=== PATIENT | female | born 1960 | race Caucasian/White ===

== ENCOUNTER → 2016-04-12 | Outpatient (CLI) | payer OTHER ==
[~2016-04-12] MED LIST: ADVAIR 250/501 DISK IH; ALBUTEROL SULF8.5 GM IH; ALBUTEROL2.5 MG/3 M IH; ALKA-SELTZER P1 EAC2 PO; AMOXICILLIN875 MG PO; ASPIRIN EC325 MG PO; ATORVASTATIN CA40 MG PO; CEFUROXIME500 MG PO; CHANTIX0.5 MG PO; CHANTIX1 MG PO; CITALOPRAM HBR20 MG PO; CITALOPRAM HBR40 MG PO; EXCEDRIN EXTRA1 EACH PO; LEVAQUIN500 MG PO; LEVAQUIN750 MG PO; LOPRESSOR25 MG PO; NAPROSYN375 MG PO; NORCO 5/3251 TABLET PO; PREDNISONE10 MG PO; PREDNISONE20 MG PO; PREDNISONE5 M1 PO; PROAIR HFA8.5 GM IH; SPIRIVA1 INHALATI IH; TYLENOL WITH C1 EACH PO; VENTOLIN HFA18 GM IH
== END | disposition home or self-care (01) ==
LOC: RES 08:00
DX: Z02.71 Encounter for disability determination (principal)
CPT/HCPCS: 94060; 94729

== ENCOUNTER 2016-04-23 12:20 | Emergency (ER) | payer OTHER ==
[~2016-04-23] VITALS: Ht 152.4 cm; Wt 40.3 kg
[~2016-04-23 12:20] MED LIST changes: -LEVAQUIN500 MG PO; -TYLENOL WITH C1 EACH PO
[2016-04-23 13:44] LABS: HEMATOCRIT 41.5 % (36.0-46.0); MCH 30.2 PG (29.0-34.0); MCHC 33.5 G/DL (30.0-36.0); MEAN PLAT.VOLUME 9.1 uM^3 (9.5-12.4); PLATELET COUNT 403 K/uL (156-360); RBC DIS.WIDTH-CV 14.5 % (11.8-14.6); RBC DIS.WIDTH-SD 46.9 % (39-53); RED BLOOD COUNT 4.61 M/uL (3.80-5.20); WHITE BLOOD COUNT 21.2 K/uL (4.1-10.2)
[2016-04-23 13:58] LABS: CHLORIDE 103 mEq/L (99-109); POTASSIUM 3.8 mEq/L (3.7-5.4)
[2016-04-23 13:59] LABS: SODIUM 139 mEq/L (136-147)
[2016-04-23 14:00] LABS: GLUCOSE 92 mg/dL (70-99)
[2016-04-23 14:02] LABS: ANION GAP 9 MEQ/L (2-14)
[2016-04-23 14:04] LABS: GFR ESTIMATE (CALCULATED) > 59 mL/min/
[2016-04-23 14:05] LABS: UREA NITROGEN (BUN) 15 mg/dL (9-23)
[2016-04-23 14:26] LABS: D-DIMER ELISA 0.33 mg/L FEU (< 0.57)
[2016-04-23 14:28] LABS: EOSINOPHIL (%) 0.6 % (0-5); EOSINOPHIL COUNT 0.1 K/uL (0-0.3); IMMATURE GRANULOCYTE (%) 0.2 % (0.0-0.7); IMMATURE GRANULOCYTE COUNT 0.5 K/uL; LYMPHOCYTE COUNT 3.3 K/uL (1.0-2.8); MONOCYTE (%) 8.3 % (3-12); MONOCYTE COUNT 1.8 K/uL (0-0.8); NEUTROPHIL (%) 75.2 % (45-76)
[2016-04-23 14:30] LABS: TROP-I INTERPRETATION NEGATIVE; TROPONIN-I < 0.01 ng/mL (0.0-0.30)
[2016-04-23 15:09] LABS: ABS NEUTROPHIL COUNT 15.92; EOSINOPHIL ABS CT 0.21; HEMATOLOGY COMMENT 1 SMEAR COMPATIBLE; PLAT.SUFFICIENCY ADEQUATE; USER ID NPD
[2016-04-23] MEDS ORDERED: LEVAQUIN500 MG PO (18:09)
[2016-04-23] MEDS ORDERED: TYLENOL WITH C1 EACH PO (18:09)
[2016-04-23 18:30] VITALS: BP 119/74
== END 2016-04-23 18:38 | disposition home or self-care (01) ==
LOC: EME 12:20
DX: J20.9 Acute bronchitis, unspecified (principal); J06.9 Acute upper respiratory infection, unspecified; I25.2 Old myocardial infarction; Z85.41 Personal history of malignant neoplasm of cervix uteri; Z87.891 Personal history of nicotine dependence
CPT/HCPCS: 71020; 71275; 80048; 83605; 83880; 84484; 85025; 85027; 85379; 87040; 93005; 99281; 99285; J2270; J2405; J7030

== ENCOUNTER 2016-05-26 22:33 | Inpatient (IN) | payer OTHER ==
[~2016-05-26] VITALS: Ht 157.5 cm; Wt 39.6 kg
[~2016-05-26 22:33] MED LIST changes: +LEVAQUIN500 MG PO; +TYLENOL WITH C1 EACH PO
[2016-05-26 23:19] LABS: HEMATOCRIT 42.9 % (36.0-46.0); MCHC 33.1 G/DL (30.0-36.0); MCV 90.7 FL (83-99); MEAN PLAT.VOLUME 9.2 uM^3 (9.5-12.4); PLATELET COUNT 283 K/uL (156-360); RBC DIS.WIDTH-CV 14.6 % (11.8-14.6); RBC DIS.WIDTH-SD 47.6 % (39-53); RED BLOOD COUNT 4.73 M/uL (3.80-5.20); WHITE BLOOD COUNT 8.8 K/uL (4.1-10.2)
[2016-05-26 23:21] LABS: CARBON DIOXIDE (BICARBONATE) 32.9 MEQ/L (20-31)
[2016-05-26 23:28] LABS: CHLORIDE 103 mEq/L (99-109); POTASSIUM 3.8 mEq/L (3.7-5.4); SODIUM 142 mEq/L (136-147)
[2016-05-26 23:30] LABS: PTT 27.2 (25-32)
[2016-05-26 23:30] LABS: GLUCOSE 109 mg/dL (70-99)
[2016-05-26 23:31] LABS: ANION GAP 11 MEQ/L (2-14)
[2016-05-26 23:34] LABS: GFR ESTIMATE (CALCULATED) > 59 mL/min/
[2016-05-26 23:35] LABS: UREA NITROGEN (BUN) 20 mg/dL (9-23)
[2016-05-26 23:39] LABS: TROP-I INTERPRETATION NEGATIVE; TROPONIN-I < 0.01 ng/mL (0.0-0.30)
[2016-05-26 23:54] LABS: BASE EXCESS -2.1 mEq/L (-3 to +3); CARBOXY HGB 2.6 % (0-5); METHEMOGLOBIN 1.1 % (0-1.5); PCO2 58 mm Hg (35-45); PO2 227 mm Hg (80-100)
[2016-05-26 23:55] LABS: COMMENTS - BLOOD GASES C+A+; DEVICE NIV; FI02 50 %; MODE SPONT; PEEP 10 CM/H20; PRES. SUPPORT 12 CM/H2O; SITE RR; TOTAL RESP RATE 21 resp/min; pH 7.26 (7.35-7.45)
[2016-05-27] VITALS (13 sets, daily range): BP systolic 92–158; BP diastolic 62–101
[2016-05-27 02:13] LABS: BASE EXCESS -1.1 mEq/L (-3 to +3); BICARBONATE 25.7 mEq/L (22-26); CARBOXY HGB 2.5 % (0-5); METHEMOGLOBIN 1.7 % (0-1.5); pH 7.31 (7.35-7.45)
[2016-05-27 02:14] LABS: COMMENTS - BLOOD GASES C+A+; DEVICE NIV; FI02 30 %; MODE SPONT; PCO2 51 mm Hg (35-45); PEEP 5 CM/H20; PO2 104 mm Hg (80-100); PRES. SUPPORT 10 CM/H2O; SITE RR; TOTAL RESP RATE 10 resp/min
[2016-05-27 02:30] LABS: METH RESISTANT S AUREUS PCR NEGATIVE (NEGATIVE)
[2016-05-27 02:43] LABS: PROBE CHECK PASS; SPECIMEN PROCESSING CONTROL PASS
[2016-05-27] MEDS ORDERED: METOPROLOL TART25 MG PO (13:21)
[2016-05-27] MEDS ORDERED: PREDNISONE10 MG PO (13:22)
[2016-05-27] MEDS ORDERED: ATORVASTATIN CA40 MG PO (13:22)
[2016-05-27] MEDS ORDERED: CITALOPRAM HBR40 MG PO (13:23)
[2016-05-27] MEDS ORDERED: PROAIR HFA8.5 GM IH (13:25)
[2016-05-27] MEDS ORDERED: PROVENTIL,2.5 MG/3 M IH (13:26)
[2016-05-27] MEDS ORDERED: ADVAIR 250/501 DISK IH (13:26)
[2016-05-27 13:37] LABS: EOSINOPHIL (%) 0 % (0-5); HEMATOCRIT 37.6 % (36.0-46.0); IMMATURE GRANULOCYTE (%) 0.3 % (0.0-0.7); LYMPHOCYTE COUNT 0.9 K/uL (1.0-2.8); MCH 28.9 PG (29.0-34.0); MCHC 31.6 G/DL (30.0-36.0); MCV 91.3 FL (83-99); MEAN PLAT.VOLUME 9.3 uM^3 (9.5-12.4); MONOCYTE COUNT 0.7 K/uL (0-0.8); NEUTROPHIL (%) 78.6 % (45-76); NEUTROPHIL COUNT 5.8 K/uL (1.8-6.4); PLATELET COUNT 259 K/uL (156-360); RBC DIS.WIDTH-CV 14.6 % (11.8-14.6); RBC DIS.WIDTH-SD 49.2 % (39-53); RED BLOOD COUNT 4.12 M/uL (3.80-5.20); WHITE BLOOD COUNT 7.3 K/uL (4.1-10.2)
[2016-05-27 14:01] LABS: ANION GAP 8 MEQ/L (2-14); CHLORIDE 102 MEQ/L (99-109); MAGNESIUM 1.8 mg/dl (1.3-2.7); POTASSIUM 4.1 MEQ/L (3.7-5.4); SAMPLE HEMOLYSIS CHECK 0; SAMPLE ICTERIC CHECK 0; SAMPLE LIPEMIA CHECK 0; SODIUM 141 MEQ/L (136-147)
[2016-05-27 14:06] LABS: GFR ESTIMATE (CALCULATED) > 59 mL/min/; GLUCOSE 141 mg/dL (70-99); UREA NITROGEN (BUN) 12 mg/dL (9-23)
[2016-05-28] VITALS: BP 117/71
[2016-05-28 04:00] VITALS: BP 131/86
[2016-05-28 06:46] LABS: EOSINOPHIL (%) 0 % (0-5); HEMATOCRIT 36.5 % (36.0-46.0); IMMATURE GRANULOCYTE (%) 0.2 % (0.0-0.7); LYMPHOCYTE COUNT 1.1 K/uL (1.0-2.8); MCV 91.3 FL (83-99); MEAN PLAT.VOLUME 9.7 uM^3 (9.5-12.4); MONOCYTE (%) 6.3 % (3-12); MONOCYTE COUNT 0.7 K/uL (0-0.8); NEUTROPHIL (%) 83.5 % (45-76); NEUTROPHIL COUNT 9.1 K/uL (1.8-6.4); PLATELET COUNT 267 K/uL (156-360); RBC DIS.WIDTH-CV 14.5 % (11.8-14.6); RBC DIS.WIDTH-SD 48.4 % (39-53)
[2016-05-28 06:52] LABS: ANION GAP 6 MEQ/L (2-14); CHLORIDE 102 MEQ/L (99-109); GFR ESTIMATE (CALCULATED) > 59 mL/min/; GLUCOSE 128 mg/dL (70-99); POTASSIUM 4.4 MEQ/L (3.7-5.4); SAMPLE HEMOLYSIS CHECK 0; SAMPLE ICTERIC CHECK 0; SAMPLE LIPEMIA CHECK 0; SODIUM 139 MEQ/L (136-147); UREA NITROGEN (BUN) 11 mg/dL (9-23)
[2016-05-28 06:55] LABS: MAGNESIUM 2.4 mg/dl (1.3-2.7)
[2016-05-28 06:56] LABS: WHITE BLOOD COUNT 10.9 K/uL (4.1-10.2)
[2016-05-28 08:00] VITALS: BP 135/72
[2016-05-28 10:33] LABS: INFLUENZA A VIRAL ANTIGEN NEGATIVE; INFLUENZA B VIRAL ANTIGEN NEGATIVE
[2016-05-28] MEDS ORDERED: SPIRIVA1 INHALATI IH (11:11)
[2016-05-28 12:00] VITALS: BP 131/72
[2016-05-28 16:00] VITALS: BP 115/80
[2016-05-28 20:00] VITALS: BP 123/89
[2016-05-29] VITALS: BP 122/73
[2016-05-29 04:00] VITALS: BP 112/69
[2016-05-29 06:07] LABS: EOSINOPHIL (%) 0 % (0-5); HEMATOCRIT 38.6 % (36.0-46.0); IMMATURE GRANULOCYTE (%) 0.2 % (0.0-0.7); LYMPHOCYTE COUNT 1.1 K/uL (1.0-2.8); MCH 29.4 PG (29.0-34.0); MCHC 32.4 G/DL (30.0-36.0); MCV 90.8 FL (83-99); MEAN PLAT.VOLUME 9.6 uM^3 (9.5-12.4); MONOCYTE (%) 4.4 % (3-12); MONOCYTE COUNT 0.6 K/uL (0-0.8); NEUTROPHIL (%) 87.6 % (45-76); NEUTROPHIL COUNT 12.4 K/uL (1.8-6.4); PLATELET COUNT 283 K/uL (156-360); RBC DIS.WIDTH-CV 14.5 % (11.8-14.6); RBC DIS.WIDTH-SD 47.8 % (39-53); RED BLOOD COUNT 4.25 M/uL (3.80-5.20)
[2016-05-29 06:13] LABS: WHITE BLOOD COUNT 14.2 K/uL (4.1-10.2)
[2016-05-29 06:24] LABS: ANION GAP 5 MEQ/L (2-14); CHLORIDE 99 MEQ/L (99-109); GFR ESTIMATE (CALCULATED) > 59 mL/min/; GLUCOSE 124 mg/dL (70-99); MAGNESIUM 2.4 mg/dl (1.3-2.7); POTASSIUM 4.9 MEQ/L (3.7-5.4); SAMPLE HEMOLYSIS CHECK 0; SAMPLE ICTERIC CHECK 0; SAMPLE LIPEMIA CHECK 0; SODIUM 138 MEQ/L (136-147); UREA NITROGEN (BUN) 20 mg/dL (9-23)
[2016-05-29 08:00] VITALS: BP 134/85
[2016-05-29 12:00] VITALS: BP 121/88
[2016-05-29 16:00] VITALS: BP 111/74
[2016-05-29 20:00] VITALS: BP 110/66
[2016-05-30] VITALS: BP 122/79
[2016-05-30 04:00] VITALS: BP 123/79
[2016-05-30 05:36] LABS: EOSINOPHIL (%) 0 % (0-5); HEMATOCRIT 41.6 % (36.0-46.0); IMMATURE GRANULOCYTE (%) 0.4 % (0.0-0.7); IMMATURE GRANULOCYTE COUNT 0.1 K/uL; LYMPHOCYTE COUNT 1.5 K/uL (1.0-2.8); MCH 31.1 PG (29.0-34.0); MCHC 33.4 G/DL (30.0-36.0); MCV 93.1 FL (83-99); MEAN PLAT.VOLUME 9.9 uM^3 (9.5-12.4); MONOCYTE (%) 4.3 % (3-12); MONOCYTE COUNT 0.7 K/uL (0-0.8); NEUTROPHIL COUNT 13.8 K/uL (1.8-6.4); PLATELET COUNT 315 K/uL (156-360); RBC DIS.WIDTH-CV 14.6 % (11.8-14.6); RBC DIS.WIDTH-SD 49.9 % (39-53); RED BLOOD COUNT 4.47 M/uL (3.80-5.20)
[2016-05-30 06:24] LABS: ANION GAP 8 MEQ/L (2-14); CHLORIDE 97 MEQ/L (99-109); GFR ESTIMATE (CALCULATED) > 59 mL/min/; GLUCOSE 116 mg/dL (70-99); MAGNESIUM 2.2 mg/dl (1.3-2.7); POTASSIUM 4.5 MEQ/L (3.7-5.4); SAMPLE HEMOLYSIS CHECK 0; SAMPLE ICTERIC CHECK 0; SAMPLE LIPEMIA CHECK 0; SODIUM 140 MEQ/L (136-147); UREA NITROGEN (BUN) 22 mg/dL (9-23)
[2016-05-30 09:00] VITALS: BP 90/74
[2016-05-30 12:30] VITALS: BP 134/95
[2016-05-30 16:00] VITALS: BP 120/79
[2016-05-30 20:00] VITALS: BP 72/36
[2016-05-31] VITALS (7 sets, daily range): BP systolic 112–119; BP diastolic 68–88
[2016-05-31 05:36] LABS: EOSINOPHIL (%) 0 % (0-5); HEMATOCRIT 38.7 % (36.0-46.0); IMMATURE GRANULOCYTE (%) 0.3 % (0.0-0.7); IMMATURE GRANULOCYTE COUNT 0.1 K/uL; MCH 30.4 PG (29.0-34.0); MCHC 33.3 G/DL (30.0-36.0); MCV 91.1 FL (83-99); MEAN PLAT.VOLUME 9.8 uM^3 (9.5-12.4); MONOCYTE (%) 4.5 % (3-12); MONOCYTE COUNT 0.7 K/uL (0-0.8); NEUTROPHIL (%) 88.7 % (45-76); NEUTROPHIL COUNT 12.9 K/uL (1.8-6.4); PLATELET COUNT 313 K/uL (156-360); RBC DIS.WIDTH-CV 14.3 % (11.8-14.6); RBC DIS.WIDTH-SD 47.3 % (39-53); RED BLOOD COUNT 4.25 M/uL (3.80-5.20); WHITE BLOOD COUNT 14.5 K/uL (4.1-10.2)
[2016-05-31 06:01] LABS: ALKALINE PHOSPHATASE 60 IU/L (3-129); ANION GAP 6 MEQ/L (2-14); CHLORIDE 99 MEQ/L (99-109); GFR ESTIMATE (CALCULATED) > 59 mL/min/; GLUCOSE 111 mg/dL (70-99); MAGNESIUM 2.1 mg/dl (1.3-2.7); POTASSIUM 4.4 MEQ/L (3.7-5.4); SAMPLE HEMOLYSIS CHECK 0; SAMPLE ICTERIC CHECK 0; SAMPLE LIPEMIA CHECK 0; SODIUM 136 MEQ/L (136-147); TOTAL BILIRUBIN 0.4 MG/DL (0.0-1.0); UREA NITROGEN (BUN) 24 mg/dL (9-23)
[2016-06-01] VITALS (7 sets, daily range): BP systolic 109–131; BP diastolic 59–84
[2016-06-01 06:31] LABS: EOSINOPHIL (%) 0 % (0-5); HEMATOCRIT 38.5 % (36.0-46.0); IMMATURE GRANULOCYTE (%) 0.5 % (0.0-0.7); IMMATURE GRANULOCYTE COUNT 0.1 K/uL; LYMPHOCYTE COUNT 1.2 K/uL (1.0-2.8); MCH 30.6 PG (29.0-34.0); MONOCYTE (%) 5.5 % (3-12); MONOCYTE COUNT 0.8 K/uL (0-0.8); NEUTROPHIL (%) 85.8 % (45-76); NEUTROPHIL COUNT 12.7 K/uL (1.8-6.4); PLATELET COUNT 336 K/uL (156-360); RBC DIS.WIDTH-CV 14.1 % (11.8-14.6); RBC DIS.WIDTH-SD 46.2 % (39-53); RED BLOOD COUNT 4.28 M/uL (3.80-5.20); WHITE BLOOD COUNT 14.8 K/uL (4.1-10.2)
[2016-06-01 06:52] LABS: ANION GAP 6 MEQ/L (2-14); CHLORIDE 99 MEQ/L (99-109); GFR ESTIMATE (CALCULATED) > 59 mL/min/; GLUCOSE 113 mg/dL (70-99); POTASSIUM 4.8 MEQ/L (3.7-5.4); SAMPLE HEMOLYSIS CHECK 0; SAMPLE ICTERIC CHECK 0; SAMPLE LIPEMIA CHECK 0; SODIUM 136 MEQ/L (136-147); UREA NITROGEN (BUN) 24 mg/dL (9-23)
[2016-06-02 03:56] VITALS: BP 114/59
[2016-06-02 06:39] LABS: HEMATOCRIT 40.1 % (36.0-46.0); MCH 28.9 PG (29.0-34.0); MCHC 32.2 G/DL (30.0-36.0); MCV 89.7 FL (83-99); MEAN PLAT.VOLUME 9.6 uM^3 (9.5-12.4); PLATELET COUNT 359 K/uL (156-360); RBC DIS.WIDTH-CV 14.3 % (11.8-14.6); RBC DIS.WIDTH-SD 46.9 % (39-53); RED BLOOD COUNT 4.47 M/uL (3.80-5.20); WHITE BLOOD COUNT 14.5 K/uL (4.1-10.2)
[2016-06-02 06:53] LABS: EOSINOPHIL (%) 0.3 % (0-5); IMMATURE GRANULOCYTE (%) 1.3 % (0.0-0.7); IMMATURE GRANULOCYTE COUNT 0.2 K/uL; LYMPHOCYTE COUNT 2.7 K/uL (1.0-2.8); MONOCYTE (%) 12.2 % (3-12); MONOCYTE COUNT 1.8 K/uL (0-0.8); NEUTROPHIL (%) 67.8 % (45-76); NEUTROPHIL COUNT 9.8 K/uL (1.8-6.4)
[2016-06-02] MEDS ORDERED: PREDNISONE20 MG PO (06:53)
[2016-06-02] MEDS ORDERED: CARDIZEM60 MG PO (06:53)
[2016-06-02 07:02] LABS: ANION GAP 5 MEQ/L (2-14); CHLORIDE 98 MEQ/L (99-109); GFR ESTIMATE (CALCULATED) > 59 mL/min/; GLUCOSE 86 mg/dL (70-99); MAGNESIUM 1.9 mg/dl (1.3-2.7); POTASSIUM 4.3 MEQ/L (3.7-5.4); SAMPLE HEMOLYSIS CHECK 0; SAMPLE ICTERIC CHECK 0; SAMPLE LIPEMIA CHECK 0; SODIUM 135 MEQ/L (136-147); UREA NITROGEN (BUN) 22 mg/dL (9-23)
[2016-06-02 08:32] VITALS: BP 125/65
[2016-06-02 08:40] VITALS: BP 116/67
[2016-06-02 11:47] VITALS: BP 129/66
== END 2016-06-02 13:16 | disposition home or self-care (01) | DRG 190 ==
LOC: EME → EDBD 22:33 → EME 22:33 → EDOF 05-27 00:06 → 4WEST 05-27 00:06 → 3EAST 05-31 22:40
PROVIDERS: Emergency Medicine; Family Medicine; Internal Medicine Nephrology; Physician Assistant Medical; Surgery
PROC: 5A09357 Assistance with Respiratory Ventilation, Less than 24 Consecutive Hours, Continuous Positive Airway Pressure (ICD-10-PCS; principal; 2016-05-27)
DX: J44.0 Chronic obstructive pulmonary disease with (acute) lower respiratory infection (principal); J15.9 Unspecified bacterial pneumonia; J96.22 Acute and chronic respiratory failure with hypercapnia; E87.2 Acidosis; J44.1 Chronic obstructive pulmonary disease with (acute) exacerbation; I10 Essential (primary) hypertension; F41.9 Anxiety disorder, unspecified; F32.9 Major depressive disorder, single episode, unspecified; Z99.81 Dependence on supplemental oxygen; Z87.891 Personal history of nicotine dependence; I25.2 Old myocardial infarction; J20.9 Acute bronchitis, unspecified
CPT/HCPCS: 36600; 71010; 71020; 80048; 80048 91; 80053; 82803; 83605; 83735; 83880; 84100; 84484; 85025; 85025 91; 85027; 85610; 85730; 87040; 87449; 87502; 87641; 94002; 94640; 94640 76; 94644; 94799; 99202; 99281; 99285; J0330; J0456; J0696; J1644; J1956; J2270; J2920; J2930; J3475; J7030; J7050; J7512; J7644

== ENCOUNTER 2016-06-05 19:48 | Inpatient (IN) | payer OTHER ==
[~2016-06-05] VITALS: Ht 154.9 cm; Wt 41.6 kg
[~2016-06-05 19:48] MED LIST changes: +CARDIZEM60 MG PO; +METOPROLOL TART25 MG PO; +PROVENTIL,2.5 MG/3 M IH
[2016-06-05 20:19] LABS: BASE EXCESS 3.5 mEq/L (-3 to +3); BICARBONATE 30.4 mEq/L (22-26); CARBOXY HGB 1.7 % (0-5); METHEMOGLOBIN 1.1 % (0-1.5); PCO2 55 mm Hg (35-45); PO2 111 mm Hg (80-100); pH 7.35 (7.35-7.45)
[2016-06-05 20:20] LABS: COMMENTS - BLOOD GASES C+A+; DEVICE NIV; FI02 30 %; MODE SPONT; PEEP 5 CM/H20; PRES. SUPPORT 10 CM/H2O; SITE RB; TOTAL RESP RATE 16 resp/min
[2016-06-05 20:39] LABS: HEMATOCRIT 37.6 % (36.0-46.0); MCH 30.7 PG (29.0-34.0); MCHC 33.8 G/DL (30.0-36.0); MCV 90.8 FL (83-99); MEAN PLAT.VOLUME 9.4 uM^3 (9.5-12.4); PLATELET COUNT 389 K/uL (156-360); RBC DIS.WIDTH-CV 14.6 % (11.8-14.6); RBC DIS.WIDTH-SD 47.5 % (39-53); RED BLOOD COUNT 4.14 M/uL (3.80-5.20); WHITE BLOOD COUNT 15.4 K/uL (4.1-10.2)
[2016-06-05 20:43] LABS: CARBON DIOXIDE (BICARBONATE) 31.8 MEQ/L (20-31)
[2016-06-05 20:45] LABS: CHLORIDE 103 mEq/L (99-109); POTASSIUM 4.3 mEq/L (3.7-5.4); SODIUM 139 mEq/L (136-147)
[2016-06-05 20:47] LABS: GLUCOSE 225 mg/dL (70-99)
[2016-06-05 20:48] LABS: ANION GAP 9 MEQ/L (2-14)
[2016-06-05 20:51] LABS: GFR ESTIMATE (CALCULATED) > 59 mL/min/
[2016-06-05 20:52] LABS: UREA NITROGEN (BUN) 33 mg/dL (9-23)
[2016-06-05 20:58] LABS: TROP-I INTERPRETATION NEGATIVE; TROPONIN-I < 0.01 ng/mL (0.0-0.30)
[2016-06-05] MEDS ORDERED: PREDNISONE10 MG PO ×2 (21:43→21:44)
[2016-06-05 22:11] LABS: BASE EXCESS 2.6 mEq/L (-3 to +3); BICARBONATE 28.4 mEq/L (22-26); CARBOXY HGB 1.5 % (0-5); pH 7.38 (7.35-7.45)
[2016-06-05 22:12] LABS: COMMENTS - BLOOD GASES C+A+; DEVICE HHFNC; FI02 30 %; O2 FLOW 50 L/MIN; PCO2 48 mm Hg (35-45); PO2 141 mm Hg (80-100); SITE RB; TOTAL RESP RATE 24 resp/min
[2016-06-05 23:46] VITALS: BP 125/75
[2016-06-06 03:10] VITALS: BP 148/87
[2016-06-06 07:42] VITALS: BP 123/85
[2016-06-06 07:52] LABS: ANION GAP 7 MEQ/L (2-14); CHLORIDE 104 MEQ/L (99-109); POTASSIUM 4.4 MEQ/L (3.7-5.4); SAMPLE HEMOLYSIS CHECK 0; SAMPLE ICTERIC CHECK 0; SAMPLE LIPEMIA CHECK 0; SODIUM 137 MEQ/L (136-147)
[2016-06-06 07:55] LABS: GFR ESTIMATE (CALCULATED) > 59 mL/min/; UREA NITROGEN (BUN) 19 mg/dL (9-23)
[2016-06-06 07:56] LABS: GLUCOSE 115 mg/dL (70-99)
[2016-06-06 11:40] VITALS: BP 142/88
[2016-06-06 16:15] VITALS: BP 130/69
[2016-06-06 19:51] VITALS: BP 135/72
[2016-06-06 23:18] VITALS: BP 135/78
[2016-06-07 03:43] VITALS: BP 120/67
[2016-06-07 08:26] VITALS: BP 121/70
[2016-06-07 11:16] VITALS: BP 135/80
[2016-06-07 14:54] VITALS: BP 145/73
[2016-06-07 19:32] VITALS: BP 159/86
[2016-06-07 23:03] VITALS: BP 113/62
[2016-06-08] VITALS (7 sets, daily range): BP systolic 125–175; BP diastolic 66–78
[2016-06-09 03:48] VITALS: BP 140/83
[2016-06-09 06:55] VITALS: BP 134/91
[2016-06-09 11:25] VITALS: BP 134/91
[2016-06-09 15:10] VITALS: BP 132/76
[2016-06-09 19:46] VITALS: BP 120/65
[2016-06-09 23:52] VITALS: BP 128/77
[2016-06-10 03:46] VITALS: BP 122/74
[2016-06-10 06:50] VITALS: BP 130/80
[2016-06-10] MEDS ORDERED: ALPRAZOLAM0.25 M2 PO (08:20)
[2016-06-10] MEDS ORDERED: DUONEB 2.5-0.5 M3 ML AEROSOL (08:20)
[2016-06-10] MEDS ORDERED: BUSPAR15 MG PO (08:20)
[2016-06-10] MEDS ORDERED: LEVOFLOXACIN750 MG PO (08:20)
[2016-06-10 11:35] VITALS: BP 134/81
== END 2016-06-10 13:14 | disposition home health service (06) | DRG 189 ==
LOC: EME → EDBD 19:48 → EME 19:48 → 4EAST 22:32 → EDOF 22:32 → 4EAST 23:43 → 2EAST 06-08 11:16
PROVIDERS: Emergency Medicine; Family Medicine
PROC: 5A09358 Assistance with Respiratory Ventilation, Less than 24 Consecutive Hours, Intermittent Positive Airway Pressure (ICD-10-PCS; principal; 2016-06-05)
DX: J96.21 Acute and chronic respiratory failure with hypoxia (principal); J44.1 Chronic obstructive pulmonary disease with (acute) exacerbation; R00.0 Tachycardia, unspecified; R94.31 Abnormal electrocardiogram [ECG] [EKG]; I10 Essential (primary) hypertension; I25.10 Atherosclerotic heart disease of native coronary artery without angina pectoris; F41.9 Anxiety disorder, unspecified; F32.9 Major depressive disorder, single episode, unspecified; Z87.891 Personal history of nicotine dependence; Z99.81 Dependence on supplemental oxygen; Z79.51 Long term (current) use of inhaled steroids
CPT/HCPCS: 36600; 71010; 80048; 82803; 83605; 83880; 84484; 85027; 87040; 93005; 94002; 94640; 94640 76; 94760; 94799; 99202; 99281; 99284; J1100; J1644; J1956; J2930; J7030; J7512

== ENCOUNTER 2016-08-14 16:51 | Emergency (ER) | payer OTHER ==
[~2016-08-14] VITALS: Ht 154.9 cm; Wt 43.8 kg
[~2016-08-14 16:51] MED LIST changes: +ALPRAZOLAM0.25 M2 PO; +BUSPAR15 MG PO; +DUONEB 2.5-0.5 M3 ML AEROSOL; +LEVOFLOXACIN750 MG PO
[2016-08-14] MEDS ORDERED: VENTOLIN HFA18 GM IH (18:56)
[2016-08-14] MEDS ORDERED: DOXYCYCLINE HY100 MG PO (18:56)
[2016-08-14 19:25] VITALS: BP 121/67
== END 2016-08-14 19:28 | disposition home or self-care (01) ==
LOC: EME 16:51
DX: J20.9 Acute bronchitis, unspecified (principal); Z87.891 Personal history of nicotine dependence; I25.2 Old myocardial infarction; J44.9 Chronic obstructive pulmonary disease, unspecified; Z85.41 Personal history of malignant neoplasm of cervix uteri; Z87.01 Personal history of pneumonia (recurrent)
CPT/HCPCS: 71020; 99281; 99284

== ENCOUNTER 2016-08-17 22:57 | Inpatient (IN) | payer OTHER ==
[~2016-08-17] VITALS: Ht 154.9 cm; Wt 44.5 kg
[~2016-08-17 22:57] MED LIST changes: +DOXYCYCLINE HY100 MG PO
[2016-08-18 00:12] LABS: HEMATOCRIT 37.8 % (36.0-46.0); MCH 28.9 PG (29.0-34.0); MCV 90.2 FL (83-99); MEAN PLAT.VOLUME 9.3 uM^3 (9.5-12.4); PLATELET COUNT 347 K/uL (156-360); RBC DIS.WIDTH-CV 14.4 % (11.8-14.6); RBC DIS.WIDTH-SD 47.7 % (39-53); RED BLOOD COUNT 4.19 M/uL (3.80-5.20); WHITE BLOOD COUNT 10.1 K/uL (4.1-10.2)
[2016-08-18 00:25] LABS: CHLORIDE 104 mEq/L (99-109); POTASSIUM 3.8 mEq/L (3.7-5.4); SODIUM 141 mEq/L (136-147)
[2016-08-18 00:26] LABS: GLUCOSE 98 mg/dL (70-99)
[2016-08-18 00:28] LABS: ANION GAP 10 MEQ/L (2-14)
[2016-08-18 00:30] LABS: GFR ESTIMATE (CALCULATED) > 59 mL/min/
[2016-08-18 00:31] LABS: UREA NITROGEN (BUN) 8 mg/dL (9-23)
[2016-08-18 03:08] LABS: D-DIMER ELISA 1.57 mg/L FEU (< 0.57)
[2016-08-18 03:17] LABS: TROP-I INTERPRETATION NEGATIVE; TROPONIN-I < 0.01 ng/mL (0.0-0.30)
[2016-08-18] MEDS ORDERED: ALPRAZOLAM0.25 M2 PO (07:32)
[2016-08-18] MEDS ORDERED: SPIRIVA1 INHALATI IH (07:35)
[2016-08-18] MEDS ORDERED: DILTIAZEM 24HR120 M2 PO (07:35)
[2016-08-18] MEDS ORDERED: DOXYCYCLINE HY100 MG PO (07:36)
[2016-08-18 09:15] VITALS: BP 115/73
[2016-08-18 11:20] VITALS: BP 123/82
[2016-08-18 20:04] VITALS: BP 93/55
[2016-08-18 22:51] LABS: METH RESISTANT S AUREUS PCR NEGATIVE (NEGATIVE)
[2016-08-18 22:53] LABS: PROBE CHECK PASS; SPECIMEN PROCESSING CONTROL PASS
[2016-08-18 23:59] VITALS: BP 121/76
[2016-08-19 03:10] VITALS: BP 104/72
[2016-08-19 08:00] VITALS: BP 102/62
[2016-08-20 00:08] VITALS: BP 102/62
[2016-08-20 07:40] VITALS: BP 109/81
[2016-08-20 15:40] VITALS: BP 103/68
[2016-08-20 18:36] LABS: QGTB-NIL 0.14 IU/mL (()); TB AG-NIL 0.05 IU/mL (())
[2016-08-20 23:38] VITALS: BP 118/75
[2016-08-21 08:00] VITALS: BP 115/72
[2016-08-21 08:07] LABS: INTERNAL CONTROL VALID? YES
[2016-08-21 10:10] LABS: EOSINOPHIL (%) 0 % (0-5); HEMATOCRIT 35.5 % (36.0-46.0); IMMATURE GRANULOCYTE (%) 0.3 % (0.0-0.7); INSTRUMENT ABS NEUTROPHIL CT 5.5 K/uL; LYMPHOCYTE COUNT 2.4 K/uL (1.0-2.8); MCH 29.6 PG (29.0-34.0); MCHC 32.4 G/DL (30.0-36.0); MCV 91.3 FL (83-99); MEAN PLAT.VOLUME 9.8 uM^3 (9.5-12.4); MONOCYTE (%) 11.6 % (3-12); MONOCYTE COUNT 1.1 K/uL (0-0.8); NEUTROPHIL (%) 61.2 % (45-76); NEUTROPHIL COUNT 5.5 K/uL (1.8-6.4); PLATELET COUNT 385 K/uL (156-360); RBC DIS.WIDTH-CV 14.6 % (11.8-14.6); RBC DIS.WIDTH-SD 48.9 % (39-53); RED BLOOD COUNT 3.89 M/uL (3.80-5.20)
[2016-08-21 10:32] LABS: ANION GAP 7 MEQ/L (2-14); CHLORIDE 101 MEQ/L (99-109); GFR ESTIMATE (CALCULATED) > 59 mL/min/; GLUCOSE 82 mg/dL (70-99); POTASSIUM 4.3 MEQ/L (3.7-5.4); SAMPLE HEMOLYSIS CHECK 0; SAMPLE ICTERIC CHECK 0; SAMPLE LIPEMIA CHECK 0; SODIUM 140 MEQ/L (136-147); UREA NITROGEN (BUN) 14 mg/dL (9-23)
[2016-08-21] MEDS ORDERED: ENDOCET 5-3251 EACH PO (14:28)
[2016-08-21] MEDS ORDERED: LEVAQUIN750 MG PO (14:28)
== END 2016-08-21 15:18 | disposition home or self-care (01) | DRG 190 ==
LOC: EME 22:57 → EDOF 08-18 07:45 → 2EASTP 08-18 07:45
PROVIDERS: Emergency Medicine; Internal Medicine Infectious Disease; Pediatrics; Physician Assistant; Physician Assistant Medical
DX: J44.0 Chronic obstructive pulmonary disease with (acute) lower respiratory infection (principal); J15.9 Unspecified bacterial pneumonia; J44.1 Chronic obstructive pulmonary disease with (acute) exacerbation; J96.10 Chronic respiratory failure, unspecified whether with hypoxia or hypercapnia; R91.1 Solitary pulmonary nodule; E86.0 Dehydration; I10 Essential (primary) hypertension; I25.10 Atherosclerotic heart disease of native coronary artery without angina pectoris; E78.5 Hyperlipidemia, unspecified; F41.9 Anxiety disorder, unspecified; F32.9 Major depressive disorder, single episode, unspecified; Z99.81 Dependence on supplemental oxygen; Z87.891 Personal history of nicotine dependence
CPT/HCPCS: 71010; 71020; 71275; 80048; 84484; 85025; 85027; 85379; 86480 90; 87040; 87070; 87116; 87205; 87206; 87449; 87641; 93005; 94640; 94640 76; 94799; 99281; 99285; J0295; J0456; J0692; J0696; J1644; J2270; J2405; J2930; J7030; J7050; J7512

== ENCOUNTER 2016-10-25 11:45 | Emergency (ER) | payer OTHER ==
[~2016-10-25] VITALS: Ht 152.4 cm; Wt 40.4 kg
[~2016-10-25 11:45] MED LIST changes: +DILTIAZEM 24HR120 M2 PO; +ENDOCET 5-3251 EACH PO
[2016-10-25 12:59] LABS: EOSINOPHIL (%) 0.5 % (0-5); EOSINOPHIL COUNT 0.1 K/uL (0-0.3); IMMATURE GRANULOCYTE (%) 0.5 % (0.0-0.7); IMMATURE GRANULOCYTE COUNT 0.1 K/uL; INSTRUMENT ABS NEUTROPHIL CT 12.5 K/uL; LYMPHOCYTE COUNT 1.4 K/uL (1.0-2.8); MCH 28.4 PG (29.0-34.0); MCHC 32.5 G/DL (30.0-36.0); MCV 87.3 FL (83-99); MEAN PLAT.VOLUME 9.3 uM^3 (9.5-12.4); MONOCYTE (%) 8.8 % (3-12); MONOCYTE COUNT 1.4 K/uL (0-0.8); NEUTROPHIL COUNT 12.5 K/uL (1.8-6.4); PLATELET COUNT 313 K/uL (156-360); RBC DIS.WIDTH-CV 14.6 % (11.8-14.6); RBC DIS.WIDTH-SD 47.1 % (39-53); RED BLOOD COUNT 4.58 M/uL (3.80-5.20); WHITE BLOOD COUNT 15.4 K/uL (4.1-10.2)
[2016-10-25 13:09] LABS: CHLORIDE 105 mEq/L (99-109); SODIUM 144 mEq/L (136-147)
[2016-10-25 13:10] LABS: GLUCOSE 95 mg/dL (70-99)
[2016-10-25 13:12] LABS: ANION GAP 14 MEQ/L (2-14)
[2016-10-25 13:14] LABS: GFR ESTIMATE (CALCULATED) > 59 mL/min/
[2016-10-25 13:15] LABS: UREA NITROGEN (BUN) 10 mg/dL (9-23)
[2016-10-25 13:40] LABS: TROP-I INTERPRETATION NEGATIVE; TROPONIN-I < 0.01 ng/mL (0.0-0.30)
[2016-10-25 15:00] VITALS: BP 105/61
[2016-10-25 15:42] LABS: TROP-I INTERPRETATION NEGATIVE; TROPONIN-I < 0.01 ng/mL (0.0-0.30)
[2016-10-25] MEDS ORDERED: VENTOLIN HFA18 GM IH (16:44)
[2016-10-25] MEDS ORDERED: ZITHROMAX Z-PA250 MG PO (16:44)
[2016-10-25] MEDS ORDERED: ULTRAM50 MG PO (16:45)
== END 2016-10-25 17:26 | disposition home or self-care (01) ==
LOC: EME 11:45
PROVIDERS: Emergency Medicine
DX: R07.9 Chest pain, unspecified (principal); J44.9 Chronic obstructive pulmonary disease, unspecified; I25.2 Old myocardial infarction; Z87.891 Personal history of nicotine dependence
CPT/HCPCS: 71020; 80048; 84484; 85025; 93005; 99281; 99285

== ENCOUNTER 2017-01-25 21:51 | Emergency (ER) | payer OTHER ==
[~2017-01-25] VITALS: Ht 149.9 cm; Wt 38.4 kg
[~2017-01-25 21:51] MED LIST changes: +ULTRAM50 MG PO; +ZITHROMAX Z-PA250 MG PO
[2017-01-25 23:17] LABS: MCH 29.4 PG (29.0-34.0); MCHC 32.4 G/DL (30.0-36.0); MCV 90.7 FL (83-99); MEAN PLAT.VOLUME 9.6 uM^3 (9.5-12.4); PLATELET COUNT 290 K/uL (156-360); RBC DIS.WIDTH-CV 14.7 % (11.8-14.6); RBC DIS.WIDTH-SD 49.3 % (39-53); RED BLOOD COUNT 4.19 M/uL (3.80-5.20); WHITE BLOOD COUNT 9.9 K/uL (4.1-10.2)
[2017-01-25 23:39] LABS: CHLORIDE 102 mEq/L (99-109); POTASSIUM 3.7 mEq/L (3.7-5.4); SODIUM 139 mEq/L (136-147)
[2017-01-25 23:41] LABS: GLUCOSE 109 mg/dL (70-99)
[2017-01-25 23:42] LABS: ANION GAP 9 MEQ/L (2-14)
[2017-01-25 23:44] LABS: GFR ESTIMATE (CALCULATED) > 59 mL/min/
[2017-01-25 23:45] LABS: UREA NITROGEN (BUN) 14 mg/dL (9-23)
[2017-01-26 02:16] LABS: TROP-I INTERPRETATION NEGATIVE; TROPONIN-I < 0.01 ng/mL (0.0-0.30)
[2017-01-26] MEDS ORDERED: NORCO 5/3251 TABLET PO (03:07)
[2017-01-26] MEDS ORDERED: PREDNISONE10 M1 PO (03:07)
[2017-01-26 03:21] VITALS: BP 132/70
== END 2017-01-26 03:23 | disposition home or self-care (01) ==
LOC: EME 21:51 → EXP 21:51
DX: J44.1 Chronic obstructive pulmonary disease with (acute) exacerbation (principal); R07.89 Other chest pain; I25.2 Old myocardial infarction; F41.9 Anxiety disorder, unspecified; Z87.891 Personal history of nicotine dependence; Z85.41 Personal history of malignant neoplasm of cervix uteri
CPT/HCPCS: 71020; 80048; 83880; 84484; 85027; 94640; 94799; 99281; 99284; J7512

== ENCOUNTER 2017-05-07 17:22 | Inpatient (IN) | payer OTHER ==
[~2017-05-07] VITALS: Ht 154.9 cm; Wt 37.6 kg
[~2017-05-07 17:22] MED LIST changes: +ADVAIR 500/501 DISK IH; +PREDNISONE10 M1 PO
[2017-05-07 18:20] LABS: HEMATOCRIT 33.7 % (36.0-46.0); HEMOGLOBIN 11.2 G/DL (11.9-15.5); MCH 29.5 PG (29.0-34.0); MCHC 33.2 G/DL (30.0-36.0); MCV 88.7 FL (83-99); PLATELET COUNT 295 K/uL (156-360); RBC DIS.WIDTH-CV 14.2 % (11.8-14.6); RBC DIS.WIDTH-SD 46.2 % (39-53); WHITE BLOOD COUNT 7.6 K/uL (4.1-10.2)
[2017-05-07 18:31] LABS: ALBUMIN 3.9 g/dL (3.2-4.8)
[2017-05-07 18:32] LABS: CHLORIDE 104 mEq/L (99-109); POTASSIUM 4.2 mEq/L (3.7-5.4); SODIUM 143 mEq/L (136-147)
[2017-05-07 18:34] LABS: GLUCOSE 85 mg/dL (70-99); TOTAL PROTEIN 6.6 g/dL (6.4-8.3)
[2017-05-07 18:36] LABS: TOTAL BILIRUBIN 0.2 mg/dL (0.0-1.0)
[2017-05-07 18:37] LABS: ALKALINE PHOSPHATASE 90 IU/L (3-129)
[2017-05-07 18:38] LABS: CREATININE 0.7 mg/dL (0.6-1.3); GFR ESTIMATE (CALCULATED) > 59 mL/min/
[2017-05-07 18:39] LABS: AST (GOT) 19 IU/L (2-34); UREA NITROGEN (BUN) 12 mg/dL (9-23)
[2017-05-07 18:40] LABS: ALT (GPT) 13 IU/L (3-49)
[2017-05-07 18:47] LABS: TROP-I INTERPRETATION NEGATIVE; TROPONIN-I 0.01 ng/mL (0.0-0.30)
[2017-05-07] MEDS ORDERED: MIRTAZAPINE15 MG PO (20:06)
[2017-05-07] MEDS ORDERED: CALAN120 MG PO (20:06)
[2017-05-07] MEDS ORDERED: DALIRESP500 MCG PO (20:07)
[2017-05-07] MEDS ORDERED: VITAMIN D31000 UNIT PO (20:07)
[2017-05-07] MEDS ORDERED: DESYREL100 MG PO (20:07)
[2017-05-08] VITALS (7 sets, daily range): BP systolic 93–128; BP diastolic 53–81
[2017-05-08 06:11] LABS: BASOPHIL (%) 0.3 % (0-1); EOSINOPHIL (%) 4.6 % (0-5); EOSINOPHIL COUNT 0.6 K/uL (0-0.3); HEMATOCRIT 34.2 % (36.0-46.0); HEMOGLOBIN 11.2 G/DL (11.9-15.5); IMMATURE GRANULOCYTE (%) 0.2 % (0.0-0.7); LYMPHOCYTE (%) 20.3 % (15-42); LYMPHOCYTE COUNT 2.7 K/uL (1.0-2.8); MCH 29.2 PG (29.0-34.0); MCHC 32.7 G/DL (30.0-36.0); MCV 89.3 FL (83-99); MONOCYTE (%) 11.6 % (3-12); MONOCYTE COUNT 1.6 K/uL (0-0.8); NEUTROPHIL COUNT 8.4 K/uL (1.8-6.4); PLATELET COUNT 291 K/uL (156-360); RBC DIS.WIDTH-CV 14.3 % (11.8-14.6); RBC DIS.WIDTH-SD 46.6 % (39-53); RED BLOOD COUNT 3.83 M/uL (3.80-5.20); WHITE BLOOD COUNT 13.4 K/uL (4.1-10.2)
[2017-05-08 06:34] LABS: CHLORIDE 108 MEQ/L (99-109); CREATININE 0.7 MG/DL (0.6-1.3); GFR ESTIMATE (CALCULATED) > 59 mL/min/; GLUCOSE 97 mg/dL (70-99); POTASSIUM 4.4 MEQ/L (3.7-5.4); SODIUM 141 MEQ/L (136-147); UREA NITROGEN (BUN) 9 mg/dL (9-23)
[2017-05-09 06:59] LABS: HEMATOCRIT 33.1 % (36.0-46.0); HEMOGLOBIN 10.9 G/DL (11.9-15.5); MCH 29.5 PG (29.0-34.0); MCHC 32.9 G/DL (30.0-36.0); MCV 89.5 FL (83-99); PLATELET COUNT 269 K/uL (156-360); RBC DIS.WIDTH-CV 14.3 % (11.8-14.6); RBC DIS.WIDTH-SD 46.5 % (39-53); WHITE BLOOD COUNT 4.9 K/uL (4.1-10.2)
[2017-05-09 07:46] LABS: CHLORIDE 105 MEQ/L (99-109); CREATININE 0.7 MG/DL (0.6-1.3); GFR ESTIMATE (CALCULATED) > 59 mL/min/; GLUCOSE 120 mg/dL (70-99); POTASSIUM 4.7 MEQ/L (3.7-5.4); SODIUM 140 MEQ/L (136-147); UREA NITROGEN (BUN) 16 mg/dL (9-23)
[2017-05-09 07:50] VITALS: BP 110/66
[2017-05-09 15:55] VITALS: BP 95/53
[2017-05-09 23:15] VITALS: BP 88/48
[2017-05-10 06:48] LABS: HEMATOCRIT 31.1 % (36.0-46.0); HEMOGLOBIN 10.1 G/DL (11.9-15.5); MCH 29.2 PG (29.0-34.0); MCHC 32.5 G/DL (30.0-36.0); MCV 89.9 FL (83-99); PLATELET COUNT 298 K/uL (156-360); RBC DIS.WIDTH-CV 14.5 % (11.8-14.6); RBC DIS.WIDTH-SD 47.3 % (39-53); RED BLOOD COUNT 3.46 M/uL (3.80-5.20); WHITE BLOOD COUNT 8.3 K/uL (4.1-10.2)
[2017-05-10 08:00] VITALS: BP 114/72
[2017-05-10] MEDS ORDERED: DUONEB 2.5-0.5 M3 ML AEROSOL (13:46)
[2017-05-10] MEDS ORDERED: PREDNISONE10 MG PO (13:47)
[2017-05-10] MEDS ORDERED: LEVAQUIN750 MG PO (13:48)
== END 2017-05-10 15:07 | disposition home health service (06) | DRG 194 ==
LOC: EME 17:22 → EDOF 20:21 → 2EAST 20:21 → ENRESERV 20:28 → 2EAST 23:00
PROVIDERS: Emergency Medicine; Internal Medicine
DX: J18.1 Lobar pneumonia, unspecified organism (principal); J44.0 Chronic obstructive pulmonary disease with (acute) lower respiratory infection; J44.1 Chronic obstructive pulmonary disease with (acute) exacerbation; J96.11 Chronic respiratory failure with hypoxia; Z99.81 Dependence on supplemental oxygen; R04.2 Hemoptysis; M48.55XA Collapsed vertebra, not elsewhere classified, thoracolumbar region, initial encounter for fracture; R91.1 Solitary pulmonary nodule; I10 Essential (primary) hypertension; E78.00 Pure hypercholesterolemia, unspecified; I25.10 Atherosclerotic heart disease of native coronary artery without angina pectoris; R63.4 Abnormal weight loss; Z68.1 Body mass index [BMI] 19.9 or less, adult; I25.2 Old myocardial infarction; M54.9 Dorsalgia, unspecified; G89.29 Other chronic pain; F41.9 Anxiety disorder, unspecified; F32.9 Major depressive disorder, single episode, unspecified; Z87.891 Personal history of nicotine dependence; Z85.41 Personal history of malignant neoplasm of cervix uteri
CPT/HCPCS: 71045; 71275; 72100; 80048; 80053; 83605; 84484; 85025; 85027; 85610; 87040; 87070; 87205; 87449; 93005; 94640; 94640 76; 94760; 94799; 99202; 99281; 99285; J0696; J1956; J7030; J7512

== ENCOUNTER 2017-07-27 22:09 | Inpatient (IN) | payer OTHER ==
[~2017-07-27] VITALS: Ht 154.9 cm; Wt 38.2 kg
[~2017-07-27 22:09] MED LIST changes: +CALAN SR,COVER120 MG PO; +DALIRESP500 MCG PO; +DESYREL100 MG PO; +REMERON30 M2 PO; +VITAMIN D31000 UNIT PO
[2017-07-27 23:11] LABS: HEMATOCRIT 37.3 % (36.0-46.0); HEMOGLOBIN 12.5 G/DL (11.9-15.5); MCH 29.1 PG (29.0-34.0); MCHC 33.5 G/DL (30.0-36.0); MCV 86.7 FL (83-99); PLATELET COUNT 277 K/uL (156-360); RBC DIS.WIDTH-CV 14.4 % (11.8-14.6); RBC DIS.WIDTH-SD 45.8 % (39-53)
[2017-07-27 23:24] LABS: CHLORIDE 105 mEq/L (99-109); POTASSIUM 3.7 mEq/L (3.7-5.4); SODIUM 141 mEq/L (136-147)
[2017-07-27 23:26] LABS: GLUCOSE 119 mg/dL (70-99)
[2017-07-27 23:29] LABS: TROP-I INTERPRETATION NEGATIVE; TROPONIN-I < 0.01 ng/mL (0.0-0.30)
[2017-07-27 23:30] LABS: CREATININE 0.8 mg/dL (0.6-1.3); GFR ESTIMATE (CALCULATED) > 59 mL/min/
[2017-07-27 23:31] LABS: UREA NITROGEN (BUN) 12 mg/dL (9-23)
[2017-07-28 01:53] LABS: TROP-I INTERPRETATION NEGATIVE; TROPONIN-I < 0.01 ng/mL (0.0-0.30)
[2017-07-28 03:32] LABS: ALBUMIN 4.2 g/dL (3.2-4.8)
[2017-07-28 03:35] LABS: TOTAL PROTEIN 7.3 g/dL (6.4-8.3)
[2017-07-28 03:37] LABS: TOTAL BILIRUBIN 0.3 mg/dL (0.0-1.0)
[2017-07-28 03:38] LABS: ALKALINE PHOSPHATASE 84 IU/L (3-129)
[2017-07-28 03:39] LABS: PHOSPHORUS 2.9 mg/dL (2.5-4.9)
[2017-07-28 03:40] LABS: AST (GOT) 19 IU/L (2-34); DIRECT BILIRUBIN 0.1 mg/dL (0.0-0.3)
[2017-07-28 03:41] LABS: ALT (GPT) 15 IU/L (3-49)
[2017-07-28 03:42] LABS: LIPASE 14 U/L (1.0-51.0)
[2017-07-28 15:10] VITALS: BP 118/60
[2017-07-29 00:24] VITALS: BP 92/58
[2017-07-29 07:27] LABS: HEMATOCRIT 36.4 % (36.0-46.0); HEMOGLOBIN 11.9 G/DL (11.9-15.5); MCH 28.3 PG (29.0-34.0); MCHC 32.7 G/DL (30.0-36.0); MCV 86.5 FL (83-99); PLATELET COUNT 286 K/uL (156-360); RBC DIS.WIDTH-CV 14.2 % (11.8-14.6); RBC DIS.WIDTH-SD 45.1 % (39-53); RED BLOOD COUNT 4.21 M/uL (3.80-5.20); WHITE BLOOD COUNT 3.4 K/uL (4.1-10.2)
[2017-07-29 07:53] LABS: CHLORIDE 104 MEQ/L (99-109); CREATININE 0.6 MG/DL (0.6-1.3); GFR ESTIMATE (CALCULATED) > 59 mL/min/; GLUCOSE 144 mg/dL (70-99); SODIUM 140 MEQ/L (136-147); UREA NITROGEN (BUN) 11 mg/dL (9-23)
[2017-07-29 07:57] LABS: POTASSIUM 4.5 MEQ/L (3.7-5.4)
[2017-07-29 08:18] VITALS: BP 100/60
[2017-07-29 08:20] LABS: INTER. NORMALIZED RATIO ND; PTT ND SEC (25-37)
[2017-07-29 09:09] LABS: INTER. NORMALIZED RATIO 1.1
[2017-07-29 09:12] LABS: PTT 27.7 SEC (25-37)
[2017-07-29 11:45] VITALS: BP 98/60
[2017-07-29 18:28] VITALS: BP 100/62
[2017-07-30 00:10] VITALS: BP 100/64
[2017-07-30 06:42] LABS: HEMATOCRIT 32.8 % (36.0-46.0); HEMOGLOBIN 10.7 G/DL (11.9-15.5); MCH 28.1 PG (29.0-34.0); MCHC 32.6 G/DL (30.0-36.0); MCV 86.1 FL (83-99); PLATELET COUNT 310 K/uL (156-360); RBC DIS.WIDTH-CV 14.2 % (11.8-14.6); RBC DIS.WIDTH-SD 44.5 % (39-53); RED BLOOD COUNT 3.81 M/uL (3.80-5.20); WHITE BLOOD COUNT 13.7 K/uL (4.1-10.2)
[2017-07-30 07:35] VITALS: BP 110/68
[2017-07-30 09:41] VITALS: BP 102/64
[2017-07-30 15:20] VITALS: BP 108/62
[2017-07-31 00:21] VITALS: BP 130/72
[2017-07-31 02:53] LABS: QGTB-NIL 0.17 IU/mL (()); QUANTIFERON TB GOLD NEGATIVE (Negative); TB AG-NIL 0.06 IU/mL (())
[2017-07-31 06:13] LABS: HEMATOCRIT 33.9 % (36.0-46.0); HEMOGLOBIN 10.8 G/DL (11.9-15.5); MCH 27.6 PG (29.0-34.0); MCHC 31.9 G/DL (30.0-36.0); MCV 86.5 FL (83-99); PLATELET COUNT 348 K/uL (156-360); RBC DIS.WIDTH-CV 14.5 % (11.8-14.6); RED BLOOD COUNT 3.92 M/uL (3.80-5.20); WHITE BLOOD COUNT 12.2 K/uL (4.1-10.2)
[2017-07-31 07:44] VITALS: BP 106/62
[2017-07-31] MEDS ORDERED: ADVAIR 250/501 DISK IH (13:32)
[2017-07-31] MEDS ORDERED: FOSAMAX70 MG PO (13:35)
[2017-07-31] MEDS ORDERED: AMOX TR-K CLV1 EAC4 PO (13:35)
[2017-07-31 15:29] VITALS: BP 112/60
[2017-07-31 23:46] VITALS: BP 120/71
[2017-08-01 06:44] LABS: HEMATOCRIT 31.6 % (36.0-46.0); HEMOGLOBIN 10.3 G/DL (11.9-15.5); MCH 28.2 PG (29.0-34.0); MCHC 32.6 G/DL (30.0-36.0); MCV 86.6 FL (83-99); PLATELET COUNT 347 K/uL (156-360); RBC DIS.WIDTH-CV 14.6 % (11.8-14.6); RBC DIS.WIDTH-SD 47.1 % (39-53); RED BLOOD COUNT 3.65 M/uL (3.80-5.20); WHITE BLOOD COUNT 10.4 K/uL (4.1-10.2)
[2017-08-01 07:14] VITALS: BP 111/73
[2017-08-01 07:15] LABS: CHLORIDE 106 MEQ/L (99-109); CREATININE 0.6 MG/DL (0.6-1.3); GFR ESTIMATE (CALCULATED) > 59 mL/min/; GLUCOSE 97 mg/dL (70-99); POTASSIUM 4.3 MEQ/L (3.7-5.4); SODIUM 140 MEQ/L (136-147); UREA NITROGEN (BUN) 20 mg/dL (9-23)
[2017-08-01] MEDS ORDERED: PREDNISONE10 MG PO ×2 (07:43→07:48)
[2017-08-01] MEDS ORDERED: AMOX TR-K CLV1 EAC4 PO (07:43)
== END 2017-08-01 16:35 | disposition home or self-care (01) | DRG 206 ==
LOC: EME 22:09 → 5SOUTH 07-28 07:48 → EDOF 07-28 07:48 → ENRESERV 07-28 07:52 → 5SOUTH 07-28 14:54 → ENPENDDIS 08-01 07:46 → 5SOUTH 08-01 16:35
PROVIDERS: Emergency Medicine; Hospitalist; Radiology Diagnostic Radiology
PROC: 0BBN3ZX Excision of Right Pleura, Percutaneous Approach, Diagnostic (ICD-10-PCS; principal; 2017-07-29)
DX: R91.1 Solitary pulmonary nodule (principal); J44.1 Chronic obstructive pulmonary disease with (acute) exacerbation; R64 Cachexia; I10 Essential (primary) hypertension; E78.5 Hyperlipidemia, unspecified; Z87.891 Personal history of nicotine dependence; F41.9 Anxiety disorder, unspecified; Z85.41 Personal history of malignant neoplasm of cervix uteri; Z87.01 Personal history of pneumonia (recurrent); Z99.81 Dependence on supplemental oxygen; Z68.1 Body mass index [BMI] 19.9 or less, adult; R04.2 Hemoptysis; Z78.9 Other specified health status; F32.9 Major depressive disorder, single episode, unspecified
CPT/HCPCS: 71045; 71046; 71275; 77012; 80048; 80076; 83605; 83690; 83735; 84100; 84484; 85027; 85610; 85730; 86480 90; 87040; 87070; 87075; 87116; 87205; 87206; 88173; 88305; 93005; 94640; 94640 76; 94760; 94799; 99202; 99281; 99285; J0456; J0696; J1644; J1956; J2920; J2930; J3010; J7030; J7512

== ENCOUNTER 2017-11-28 20:05 | Inpatient (IN) | payer OTHER ==
[~2017-11-28] VITALS: Ht 154.9 cm; Wt 39.1 kg
[~2017-11-28 20:05] MED LIST changes: +AMOX TR-K CLV1 EAC4 PO; +FOSAMAX70 MG PO
[2017-11-28 20:33] LABS: HEMATOCRIT 36.8 % (36.0-46.0); HEMOGLOBIN 12.2 G/DL (11.9-15.5); MCH 28.8 PG (29.0-34.0); MCHC 33.2 G/DL (30.0-36.0); MCV 86.8 FL (83-99); PLATELET COUNT 264 K/uL (156-360); RBC DIS.WIDTH-CV 14.9 % (11.8-14.6); RBC DIS.WIDTH-SD 47.8 % (39-53); RED BLOOD COUNT 4.24 M/uL (3.80-5.20); WHITE BLOOD COUNT 24.5 K/uL (4.1-10.2)
[2017-11-28 20:44] LABS: CHLORIDE 102 mEq/L (99-109); POTASSIUM 4.1 mEq/L (3.7-5.4); SODIUM 137 mEq/L (136-147)
[2017-11-28 20:46] LABS: GLUCOSE 135 mg/dL (70-99)
[2017-11-28 20:50] LABS: CREATININE 0.8 mg/dL (0.6-1.3); GFR ESTIMATE (CALCULATED) > 59 mL/min/
[2017-11-28 20:51] LABS: UREA NITROGEN (BUN) 10 mg/dL (9-23)
[2017-11-29 00:33] LABS: APPEARANCE CLEAR ((CLEAR)); BILIRUBIN NEGATIVE; BLOOD SMALL; COLOR STRAW ((YELLOW)); GLUCOSE (STRIP) NEGATIVE; KETONES 5; LEUKOCYTES NEGATIVE; NITRITE NEGATIVE; PROTEIN (STRIP) NEGATIVE; SPECIFIC GRAVITY 1.026 (1.000-1.030); UROBILINOGEN 0.2 MG/DL (0.2-1.0)
[2017-11-29 00:43] LABS: BACTERIA NONE SEEN /HPF; EPITHELIAL CELLS RARE /HPF; MUCUS TRACE /LPF; RED BLOOD CELLS 0-5 /HPF (0-5); UCUL ADDED? NO; WHITE BLOOD CELLS 0-5 /HPF (0-5)
[2017-11-29 02:43] VITALS: BP 117/65
[2017-11-29 08:38] VITALS: BP 111/67
[2017-11-29 08:46] LABS: BASOPHIL (%) 0.2 % (0-1); BASOPHIL COUNT 0.1 K/uL (0-0.1); EOSINOPHIL (%) 0.2 % (0-5); HEMOGLOBIN 10.4 G/DL (11.9-15.5); IMMATURE GRANULOCYTE (%) 0.4 % (0.0-0.7); LYMPHOCYTE (%) 10.8 % (15-42); LYMPHOCYTE COUNT 2.2 K/uL (1.0-2.8); MCH 28.7 PG (29.0-34.0); MCHC 32.5 G/DL (30.0-36.0); MCV 88.2 FL (83-99); MONOCYTE COUNT 2.1 K/uL (0-0.8); NEUTROPHIL (%) 78.4 % (45-76); NEUTROPHIL COUNT 16.1 K/uL (1.8-6.4); PLATELET COUNT 226 K/uL (156-360); RBC DIS.WIDTH-CV 15.2 % (11.8-14.6); RBC DIS.WIDTH-SD 49.9 % (39-53); RED BLOOD COUNT 3.63 M/uL (3.80-5.20); WHITE BLOOD COUNT 20.6 K/uL (4.1-10.2)
[2017-11-29 09:38] LABS: ALBUMIN 3.2 G/DL (3.2-4.8); ALKALINE PHOSPHATASE 62 IU/L (3-129); ALT (GPT) 8 IU/L (3-49); AST (GOT) 15 IU/L (2-34); CHLORIDE 106 MEQ/L (99-109); CREATININE 0.6 MG/DL (0.6-1.3); DIRECT BILIRUBIN 0.1 mg/dL (0.0-0.3); GFR ESTIMATE (CALCULATED) > 59 mL/min/; GLUCOSE 145 mg/dL (70-99); POTASSIUM 3.9 MEQ/L (3.7-5.4); SODIUM 138 MEQ/L (136-147); TOTAL BILIRUBIN 0.4 MG/DL (0.0-1.0); TOTAL PROTEIN 5.6 G/DL (6.4-8.3); UREA NITROGEN (BUN) 6 mg/dL (9-23)
[2017-11-29 11:26] VITALS: BP 122/64
[2017-11-29 16:29] VITALS: BP 99/64
[2017-11-29 19:10] VITALS: BP 90/58
[2017-11-30] VITALS (7 sets, daily range): BP systolic 91–124; BP diastolic 56–76
[2017-11-30 06:02] LABS: BASOPHIL (%) 0.2 % (0-1); EOSINOPHIL (%) 2.6 % (0-5); EOSINOPHIL COUNT 0.4 K/uL (0-0.3); HEMATOCRIT 33.3 % (36.0-46.0); HEMOGLOBIN 10.5 G/DL (11.9-15.5); IMMATURE GRANULOCYTE (%) 0.4 % (0.0-0.7); LYMPHOCYTE (%) 15.5 % (15-42); LYMPHOCYTE COUNT 2.1 K/uL (1.0-2.8); MCH 27.8 PG (29.0-34.0); MCHC 31.5 G/DL (30.0-36.0); MCV 88.1 FL (83-99); MONOCYTE (%) 11.1 % (3-12); MONOCYTE COUNT 1.5 K/uL (0-0.8); NEUTROPHIL (%) 70.2 % (45-76); NEUTROPHIL COUNT 9.3 K/uL (1.8-6.4); PLATELET COUNT 256 K/uL (156-360); RBC DIS.WIDTH-CV 14.9 % (11.8-14.6); RBC DIS.WIDTH-SD 48.4 % (39-53); RED BLOOD COUNT 3.78 M/uL (3.80-5.20); WHITE BLOOD COUNT 13.2 K/uL (4.1-10.2)
[2017-11-30 06:26] LABS: CHLORIDE 109 MEQ/L (99-109); CREATININE 0.6 MG/DL (0.6-1.3); GFR ESTIMATE (CALCULATED) > 59 mL/min/; POTASSIUM 3.8 MEQ/L (3.7-5.4); SODIUM 143 MEQ/L (136-147); UREA NITROGEN (BUN) 7 mg/dL (9-23)
[2017-11-30 06:31] LABS: GLUCOSE 98 mg/dL (70-99)
[2017-12-01 03:26] VITALS: BP 121/68
[2017-12-01 07:35] VITALS: BP 113/64
[2017-12-01] MEDS ORDERED: AUGMENTIN875 MG PO (11:59)
[2017-12-01] MEDS ORDERED: PREDNISONE5 MG PO (12:01)
== END 2017-12-01 13:42 | disposition home or self-care (01) | DRG 194 ==
LOC: EME 20:05 → EDOF 11-29 01:12 → 2EAST 11-29 01:12 → ENRESERV 11-29 01:15 → 2EAST 11-29 02:26
PROVIDERS: Emergency Medicine; Internal Medicine
DX: J18.9 Pneumonia, unspecified organism (principal); J44.0 Chronic obstructive pulmonary disease with (acute) lower respiratory infection; J44.1 Chronic obstructive pulmonary disease with (acute) exacerbation; I10 Essential (primary) hypertension; F41.9 Anxiety disorder, unspecified; E86.0 Dehydration; E78.5 Hyperlipidemia, unspecified; I25.10 Atherosclerotic heart disease of native coronary artery without angina pectoris; J96.11 Chronic respiratory failure with hypoxia; I25.2 Old myocardial infarction; Z85.41 Personal history of malignant neoplasm of cervix uteri; Z87.891 Personal history of nicotine dependence; Z99.81 Dependence on supplemental oxygen; Z80.9 Family history of malignant neoplasm, unspecified; Z83.3 Family history of diabetes mellitus
CPT/HCPCS: 71046; 71260; 80048; 80076; 80202; 81003; 83605; 85025; 85027; 87040; 93005; 94640; 94799; 99281; 99285; J1650; J2543; J3370; J7030; J7050